=== PATIENT | female | born 1950 | race Caucasian/White ===

== ENCOUNTER → 2022-10-28 | Outpatient (CLI) | payer MEDICARE, OTHER ==
--- NOTE | 2022-10-28 09:53 | US ---
EXAMINATION TYPE: US abdomen complete DATE OF EXAM: 10/28/2022 COMPARISON: NONE CLINICAL INDICATION: Female, 72 years old with history of N95.0 POST MENOPAUSAL BLEEDING; Pain TECHNIQUE: Multiple sonographic images of the abdomen are obtained. FINDINGS: EXAM MEASUREMENTS: Liver Length: 14.0 cm Gallbladder Wall: 0.2 cm CBD: 0.3 cm Spleen: 8.0 cm Right Kidney: 9.8 x 4.0 x 4.7 cm Left Kidney: 9.9 x 4.6 x 4.9 cm EKG TECH NOTES: Pancreas: wnl, tail obscured by overlying bowel gas Liver: Visualized portions appeared wnl Gallbladder: wnl Evidence for sonographic Beltre's sign: No CBD: wnl Spleen: wnl Right Kidney: wnl, lower pole gassed out Left Kidney: wnl, lower pole gassed out Upper IVC: wnl Abd Aorta: wnl The visualized liver is homogenous. The intrahepatic portion of the IVC and proximal , mid, and dist al abdominal aorta are within normal limits. There is no evidence of cholelithiasis. Common bile du ct is unremarkable. The visualized portions of the pancreas are homogenous. The spleen is unremarka ble. Kidneys are symmetric and free of hydronephrosis. No renal lesions are seen. IMPRESSION: Slightly suboptimal study. No acute findings are seen.
--- NOTE | 2022-10-28 09:54 | US ---
EXAMINATION TYPE: US pelvis complete transvag DATE OF EXAM: 10/28/2022 COMPARISON: NONE CLINICAL INDICATION: Female, 72 years old with history of N95.0 POST MENOPAUSAL BLEEDING; Pt states p ostmenopausal bleeding x 6 weeks TECHNIQUE: Transvaginal (TV) and Transabdominal (TA) . Transabdominal sonographic images of the pel vis were acquired. Transvaginal sonographic images were medically necessary to better assess the fol lowing anatomy: Endometrium EXAM MEASUREMENTS: Uterus: 6.7 x 3.0 x 3.8 cm Endometrial Stripe: 1.0 cm Right Ovary: 1.0 x 1.0 x 1.3 cm Left Ovary: 1.4 x 1.0 x 0.9 cm 1. Uterus: Anteverted Heterogeneous 2. Endometrium: Thickened with cystic area within endo= 10 x 0.8 x 0.9 cm 3. Right Ovary: wnl 4. Left Ovary: wnl 5. Bilateral Adnexa: wnl 6. Posterior cul-de-sac: wnl Poorly visualized endometrial stripe with heterogeneity. There is cystic change and likely thickening based on 10 mm measurement by technologist. IMPRESSION: Abnormal heterogeneous thickening of the endometrial stripe. Differential includes hyperp lasia and polyp but neoplasm needs to be excluded. Endometrial sampling is advised.
== END | disposition home or self-care (01) ==
LOC: RADUSWWP 08:51
PROVIDERS: ATTEND Family Medicine
DX: N95.0 Postmenopausal bleeding (principal); R93.89 Abnormal findings on diagnostic imaging of other specified body structures
CPT/HCPCS: 76700; 76830; 76856